=== PATIENT | male | born 1970 | race Two or more races ===

== ENCOUNTER 2019-03-27 20:04 | Inpatient (IN) | payer OTHER ==
[~2019-03-27] VITALS: Ht 172.7 cm; Wt 87.1 kg
--- NOTE | 2019-03-27 20:21 | NUR ---
REPORT RECEIVED FROM SYLVIA MATA. PER REPORT: PT RAFAL REM FROM HOME FOR SUDDEN BODY ACHES AND BILATERAL UPPER EXTREMITY WEAKNESS/PAIN. PER EMS, PIV ESTABLISHED EN ROUTE, PT MEDICATED BY EMS WITH 500ML NS AND 100MCG IVP FENTANYL. PT AAO X 4, NAD, ROOM AIR, DRESSED IN GOWN AND ON FULL MONITOR. MD AT BEDSIDE FOR ASSESSMENT. FMAILY AT BEDSIDE, SIDERAIL X [address], CALL LIGHT WITHIN REACH.
[2019-03-27] MEDS ORDERED: ACETAMINOPHEN 500 MG TABLET ONE (20:28)
[2019-03-27] MEDS ORDERED: KETOROLAC 30 MG/1 ML ONE (20:28)
[2019-03-27] MEDS ORDERED: SODIUM CHLORIDE 0.9% 1,000ML IVBOLUS ONE ×2 (20:30→21:30)
[2019-03-27] MEDS ORDERED: KETOROLAC 30 MG/1 ML IVPush ONE (20:30)
[2019-03-27] MEDS ORDERED: ACETAMINOPHEN 500 MG TABLET PO ONE (20:30)
[2019-03-27] MEDS ORDERED: SODIUM CHLORIDE FLUSH 10ML SYR IVF ONE (20:30)
--- NOTE | 2019-03-27 20:32 | NUR ---
PT MEDICATED PER ORDERS.
--- NOTE | 2019-03-27 20:49 | NUR ---
REPORT TO SYLVIA NULL. CARE TRANSFERRED AT THIS TIME.
[2019-03-27 20:52] LABS: BASOPHILS # (AUTO) 0.02 x10^3/uL (0-0.1); BASOPHILS % (AUTO) 0 % (0-1); EOSINOPHILS # (AUTO) 0.03 x10^3/uL (0-0.4); EOSINOPHILS % (AUTO) 1 % (1-7); LYMPHOCYTES # (AUTO) 0.65 x10^3/uL (1-3.4); LYMPHOCYTES % (AUTO) 11 % (22-44); MD NO; MEAN CORPUSCULAR HEMOGLOBIN 30.8 pg (27.5-34.5); MEAN CORPUSCULAR HGB CONC 34.6 g/dL (33.2-36.2); MEAN CORPUSCULAR VOLUME 88.9 fL (81-97); MEAN PLATELET VOLUME 7.5 fL (7.4-10.4); MONOCYTES # (AUTO) 0.02 x10^3/uL (0.2-0.8); MONOCYTES % (AUTO) 0 % (2-9); NEUTROPHILS # (AUTO) 5.44 x10^3/uL (1.8-6.8); NEUTROPHILS % (AUTO) 88 % (42-75); PLATELET COUNT 272 x10^3/uL (130-400); RED BLOOD COUNT 4.72 x10^6/uL (4.38-5.82); RED CELL DISTRIBUTION WIDTH 12.8 % (9.4-14.8)
[2019-03-27 21:02] LABS: ALBUMIN 3.7 g/dL (3.4-5.0); ANION GAP 9 mmol/L (5-15); CALCIUM 8.3 mg/dL (8.5-10.1); CHLORIDE 108 mmol/L (98-107); CREATININE 1.01 mg/dL (0.7-1.3)
[2019-03-27] MEDS ORDERED: CEFTRIAXONE PMX 1GM/50ML 50 ML ONE (21:19)
[2019-03-27] MEDS ORDERED: CEFTRIAXONE PMX 1GM/50ML 50 ML IVPB ONE (21:30)
[2019-03-27 21:38] LABS: RAPID INFLUENZA A Negative (Negative); RAPID INFLUENZA B Negative (Negative)
[2019-03-27] MEDS ORDERED: VANCOMYCIN PER PHARMACY MC PRN (22:30)
[2019-03-27 22:54] VITALS: BP 114/71
[2019-03-27] MEDS ORDERED: POLYETHYLENE GLYCOL 17 GM PACKET PO PRN (23:00)
[2019-03-27] MEDS ORDERED: PHARMACOKINETIC MONITORING MC PRN (23:00)
[2019-03-27] MEDS ORDERED: BISACODYL 10 MG SUPP PR PRN (23:00)
[2019-03-27] MEDS ORDERED: ONDANSETRON 2MG/ML, 2ML IVPush PRN (23:00)
[2019-03-27] MEDS: ACETAMINOPHEN 325 MG TABLET PO PRN (23:11)
[2019-03-27 23:12] LABS: MICROSCOPIC NOT IND
[2019-03-27 23:15] LABS: CULTURE INDICATED? NO
[2019-03-27] MEDS ORDERED: PLEASE ENTER HEIGHT AND WEIGHT MC SCH (23:30)
[2019-03-27] MEDS ORDERED: OMNIPAQUE 350 MG/ML, 100ML BOTTLE ONE (23:49)
[2019-03-28] MEDS: HEPARIN 5,000 UNITS/ML, 1ML SQ SCH ×3 (00:04→15:48)
[2019-03-28] MEDS: NS + 20MEQ KCL 1,000 ML IV SCH ×3 (00:05→18:21)
[2019-03-28] MEDS: PIPERACILLIN/TAZO/PMX 3.375GM 50 ML IV SCH ×2 (00:05→05:54)
[2019-03-28] MEDS ORDERED: VANCOMYCIN 1,800 MG in SODIUM CHLORIDE 0.9% 250 ML IV SCH (00:30)
[2019-03-28 03:00] VITALS: BP 112/70
[2019-03-28 05:43] LABS: BASOPHILS # (AUTO) 0.01 x10^3/uL (0-0.1); BASOPHILS % (AUTO) 0 % (0-1); EOSINOPHILS # (AUTO) 0.01 x10^3/uL (0-0.4); EOSINOPHILS % (AUTO) 0 % (1-7); LYMPHOCYTES # (AUTO) 0.98 x10^3/uL (1-3.4); LYMPHOCYTES % (AUTO) 6 % (22-44); MD NO; MEAN CORPUSCULAR HEMOGLOBIN 30.7 pg (27.5-34.5); MEAN CORPUSCULAR HGB CONC 34.5 g/dL (33.2-36.2); MEAN CORPUSCULAR VOLUME 89.1 fL (81-97); MEAN PLATELET VOLUME 7.9 fL (7.4-10.4); MONOCYTES # (AUTO) 0.43 x10^3/uL (0.2-0.8); MONOCYTES % (AUTO) 3 % (2-9); NEUTROPHILS # (AUTO) 13.93 x10^3/uL (1.8-6.8); NEUTROPHILS % (AUTO) 91 % (42-75); PLATELET COUNT 245 x10^3/uL (130-400); RED BLOOD COUNT 4.23 x10^6/uL (4.38-5.82); RED CELL DISTRIBUTION WIDTH 13.2 % (9.4-14.8)
[2019-03-28 05:50] LABS: CHLORIDE 113 mmol/L (98-107)
[2019-03-28 05:54] LABS: ANION GAP 8 mmol/L (5-15); CREATININE 0.87 mg/dL (0.7-1.3)
[2019-03-28] MEDS: ACETAMINOPHEN 325 MG TABLET PO PRN ×2 (06:00→20:51)
[2019-03-28] MEDS: CEFTRIAXONE PMX 2GM/50ML 50 ML IV SCH (08:33)
[2019-03-28] MEDS: SENNA/DOCUSATE TABLET PO SCH ×2 (08:35→10:40)
[2019-03-28 08:54] VITALS: BP 114/76
[2019-03-28] MEDS: METRONIDAZOLE PMX 500MG/100ML 100 ML IV SCH ×2 (10:39→18:27)
[2019-03-28] MEDS: morphine SULFATE 10 MG/ML, 1ML IVPush PRN ×2 (11:05→15:49)
[2019-03-28 14:37] VITALS: BP 126/85
[2019-03-28 19:09] VITALS: BP 138/87
[2019-03-29] MEDS: HEPARIN 5,000 UNITS/ML, 1ML SQ SCH ×3 (00:22→17:02)
[2019-03-29 00:25] VITALS: BP 121/81
[2019-03-29] MEDS: METRONIDAZOLE PMX 500MG/100ML 100 ML IV SCH ×3 (02:30→18:45)
[2019-03-29 05:28] LABS: BASOPHILS % (AUTO) 0 % (0-1); EOSINOPHILS # (AUTO) 0.05 x10^3/uL (0-0.4); EOSINOPHILS % (AUTO) 1 % (1-7); LYMPHOCYTES # (AUTO) 0.99 x10^3/uL (1-3.4); LYMPHOCYTES % (AUTO) 11 % (22-44); MD NO; MEAN CORPUSCULAR HEMOGLOBIN 30.9 pg (27.5-34.5); MEAN CORPUSCULAR HGB CONC 34.2 g/dL (33.2-36.2); MEAN CORPUSCULAR VOLUME 90.2 fL (81-97); MEAN PLATELET VOLUME 7.5 fL (7.4-10.4); MONOCYTES # (AUTO) 0.57 x10^3/uL (0.2-0.8); MONOCYTES % (AUTO) 6 % (2-9); NEUTROPHILS # (AUTO) 7.64 x10^3/uL (1.8-6.8); NEUTROPHILS % (AUTO) 83 % (42-75); PLATELET COUNT 205 x10^3/uL (130-400)
[2019-03-29 05:39] LABS: ANION GAP 7 mmol/L (5-15); CALCIUM 8.2 mg/dL (8.5-10.1); CHLORIDE 108 mmol/L (98-107)
[2019-03-29 05:44] LABS: ALANINE AMINOTRANSFERASE 143 U/L (12-78); ALKALINE PHOSPHATASE 82 U/L (45-117); BILIRUBIN,TOTAL 0.6 mg/dL (0.2-1.0); CREATININE 0.75 mg/dL (0.7-1.3); TOTAL PROTEIN 6.6 g/dL (6.4-8.2)
[2019-03-29] MEDS: NS + 20MEQ KCL 1,000 ML IV SCH (08:00)
[2019-03-29 08:13] VITALS: BP 134/90
[2019-03-29] MEDS: SENNA/DOCUSATE TABLET PO SCH (08:55)
[2019-03-29] MEDS: CEFTRIAXONE PMX 2GM/50ML 50 ML IV SCH (08:55)
[2019-03-29 14:06] VITALS: BP 133/89
[2019-03-29] MEDS ORDERED: POTASSIUM CHLORIDE 20 MEQ TAB.ER.PRT PO ONE (16:00)
[2019-03-29] MEDS ORDERED: MAGNESIUM SULFATE PMX 2GM/50ML 50 ML IV ONE (16:00)
[2019-03-29] MEDS ORDERED: POTASSIUM PHOSPHATE 88 MEQ in SODIUM CHLORIDE 0.9% 1,000 ML IV ONE (17:00)
[2019-03-29 19:38] VITALS: BP 125/77
[2019-03-29] MEDS: ACETAMINOPHEN 325 MG TABLET PO PRN (19:57)
[2019-03-30 00:59] VITALS: BP 125/86
[2019-03-30] MEDS: HEPARIN 5,000 UNITS/ML, 1ML SQ SCH ×2 (01:14→08:48)
[2019-03-30] MEDS: METRONIDAZOLE PMX 500MG/100ML 100 ML IV SCH (02:01)
[2019-03-30 05:02] LABS: ANION GAP 8 mmol/L (5-15); CALCIUM 8.3 mg/dL (8.5-10.1); CHLORIDE 111 mmol/L (98-107)
[2019-03-30 05:03] LABS: BASOPHILS # (AUTO) 0.03 x10^3/uL (0-0.1); BASOPHILS % (AUTO) 0 % (0-1); EOSINOPHILS # (AUTO) 0.04 x10^3/uL (0-0.4); EOSINOPHILS % (AUTO) 1 % (1-7); LYMPHOCYTES # (AUTO) 1.35 x10^3/uL (1-3.4); LYMPHOCYTES % (AUTO) 22 % (22-44); MD NO; MEAN CORPUSCULAR HEMOGLOBIN 30.5 pg (27.5-34.5); MEAN CORPUSCULAR HGB CONC 34.1 g/dL (33.2-36.2); MEAN CORPUSCULAR VOLUME 89.5 fL (81-97); MEAN PLATELET VOLUME 7.7 fL (7.4-10.4); MONOCYTES % (AUTO) 10 % (2-9); NEUTROPHILS # (AUTO) 4.19 x10^3/uL (1.8-6.8); NEUTROPHILS % (AUTO) 67 % (42-75); PLATELET COUNT 226 x10^3/uL (130-400); RED BLOOD COUNT 4.56 x10^6/uL (4.38-5.82); RED CELL DISTRIBUTION WIDTH 12.9 % (9.4-14.8)
[2019-03-30 05:05] LABS: ALANINE AMINOTRANSFERASE 121 U/L (12-78); ALKALINE PHOSPHATASE 89 U/L (45-117); BILIRUBIN,TOTAL 0.4 mg/dL (0.2-1.0); CREATININE 0.77 mg/dL (0.7-1.3); TOTAL PROTEIN 7.1 g/dL (6.4-8.2)
[2019-03-30] MEDS: NS + 20MEQ KCL 1,000 ML IV SCH (08:48)
[2019-03-30] MEDS: CEFTRIAXONE PMX 2GM/50ML 50 ML IV SCH (08:49)
[2019-03-30] MEDS: SENNA/DOCUSATE TABLET PO SCH (08:49)
[2019-03-30] MEDS ORDERED: CEFD300C37 PO (10:14)
[2019-03-30] MEDS ORDERED: METR500T PO (10:14)
[2019-03-30] MEDS ORDERED: ACET325T26 PO (10:14)
[2019-03-30 10:18] VITALS: BP 147/96
== END 2019-03-30 12:57 | disposition home or self-care (01) | DRG 872 ==
LOC: ED 21:52 → EDIP 21:53 → 4WST 22:48 → DCLOUNGE 03-30 12:46
PROVIDERS: ADMIT Internal Medicine; ATTEND Internal Medicine
DX: A41.9 Sepsis, unspecified organism (principal); E87.2 Acidosis; K57.32 Diverticulitis of large intestine without perforation or abscess without bleeding; E83.39 Other disorders of phosphorus metabolism; E87.6 Hypokalemia; R65.20 Severe sepsis without septic shock; Z82.49 Family history of ischemic heart disease and other diseases of the circulatory system; Z90.49 Acquired absence of other specified parts of digestive tract; Z83.3 Family history of diabetes mellitus
CPT/HCPCS: 36415; 71045; 74177; 80048; 80053; 81003; 82040; 83605; 83735; 83880; 84100; 85025; 87040; 87076; 87077; 87186; 87400; 93005; 93306; 96365; G0378; J0696; J1644; J1885; J2405; J2543; J3370; J3480; Q9967; J2270; J3475; J7030; J7050

== ENCOUNTER 2020-02-29 09:00 | Inpatient (IN) | payer SELFPAY ==
[~2020-02-29] VITALS: Ht 172.7 cm; Wt 89.0 kg
[~2020-02-29 09:00] MED LIST: ACET325T26 PO; CEFD300C37 PO; METR500T PO
[2020-02-29] MEDS ORDERED: MORPHINE SULFATE 4 MG/ML, 1ML IVPush PRN (09:30)
[2020-02-29] MEDS ORDERED: SODIUM CHLORIDE FLUSH 10ML SYR IVF ONE (09:30)
[2020-02-29] MEDS ORDERED: KETOROLAC 30 MG/1 ML IVPush ONE (09:30)
[2020-02-29] MEDS ORDERED: SODIUM CHLORIDE 0.9% 1,000ML IVBOLUS ONE (09:30)
[2020-02-29] MEDS ORDERED: KETOROLAC 30 MG/1 ML ONE (09:45)
[2020-02-29] MEDS ORDERED: MORPHINE SULFATE 4 MG/ML, 1ML ONE (09:45)
[2020-02-29 09:54] LABS: BASOPHILS % (AUTO) 1 % (0-1); EOSINOPHILS % (AUTO) 1 % (1-7); LYMPHOCYTES % (AUTO) 18 % (22-44); MEAN CORPUSCULAR HEMOGLOBIN 30.8 pg (27.5-34.5); MEAN CORPUSCULAR HGB CONC 34.7 g/dL (33.2-36.2); MEAN PLATELET VOLUME 7.3 fL (7.4-10.4); MONOCYTES % (AUTO) 8 % (2-9); NEUTROPHILS % (AUTO) 73 % (42-75); PLATELET COUNT 334 x10^3/uL (130-400); RED BLOOD COUNT 4.63 x10^6/uL (4.38-5.82); RED CELL DISTRIBUTION WIDTH 12.8 % (9.4-14.8)
--- NOTE | 2020-02-29 09:57 | NUR ---
PT HAS CO LOWER ABDOMINAL PAIN WITH FLANK PAIN. DISCOMFORT WHEN VOIDING. SYMPTOMS STARTED TUESDAY. DENIES CP. UA SENT, LABS, PIV. MEDICATED FOR PAIN. AT BEDSIDE.
[2020-02-29 09:58] LABS: MICROSCOPIC NOT IND
[2020-02-29 10:03] LABS: ALANINE AMINOTRANSFERASE 48 U/L (12-78); ALBUMIN 3.8 g/dL (3.4-5.0); ANION GAP 8 mmol/L (5-15); CALCIUM 9.4 mg/dL (8.5-10.1); CHLORIDE 108 mmol/L (98-107)
[2020-02-29 10:06] LABS: ALKALINE PHOSPHATASE 91 U/L (45-117); BILIRUBIN,TOTAL 0.5 mg/dL (0.2-1.0)
[2020-02-29 10:07] LABS: MD NO
--- NOTE | 2020-02-29 10:15 | NUR ---
PT STATES RELEIF FROM PAIN MEDICATION
--- NOTE | 2020-02-29 10:35 | NUR ---
PT TO CT
[2020-02-29] MEDS ORDERED: OMNIPAQUE 350 MG/ML, 100ML BOTTLE ONE (10:40)
[2020-02-29] MEDS ORDERED: METRONIDAZOLE PMX 500MG/100ML 100 ML IV ONE (11:00)
[2020-02-29] MEDS ORDERED: AMPICILLIN/SULBACTAM 3 GM in SODIUM CHLORIDE 0.9% 100 ML IV ONE (11:00)
[2020-02-29] MEDS ORDERED: METRONIDAZOLE PMX 500MG/100ML 100 ML ONE (11:32)
--- NOTE | 2020-02-29 11:36 | NUR ---
BLOOD CULTURES DRAWN PRIOR ABX ADMIN. POC FOR ADMISSION
[2020-02-29] MEDS ORDERED: KETOROLAC 30 MG/1 ML IV PRN (13:30)
[2020-02-29] MEDS ORDERED: HYDROmorphone 2 MG/ML, 1ML IVPush PRN (13:30)
[2020-02-29] MEDS ORDERED: LACTATED RINGERS 1,000 ML IVBOLUS ONE (13:30)
[2020-02-29] MEDS ORDERED: ONDANSETRON ODT 4 MG PO PRN (13:30)
[2020-02-29] MEDS ORDERED: ONDANSETRON 2MG/ML, 2ML IVPush PRN (13:30)
--- NOTE | 2020-02-29 14:03 | NUR ---
REPORT TO SMITA
[2020-02-29 14:31] VITALS: BP 146/77
[2020-02-29 14:48] VITALS: BP 146/77
[2020-02-29] MEDS: ENOXAPARIN 40 MG/0.4 ML SQ SCH (16:35)
[2020-02-29] MEDS: ACETAMINOPHEN 325 MG TABLET PO PRN (16:36)
[2020-02-29 20:00] VITALS: BP 141/88
[2020-02-29] MEDS: AMPICILLIN/SULBACTAM 3 GM in SODIUM CHLORIDE 0.9% 100 ML IV SCH (21:19)
[2020-02-29] MEDS: METRONIDAZOLE PMX 500MG/100ML 100 ML IV SCH (22:25)
[2020-03-01] MEDS: LACTATED RINGERS 1,000 ML IV SCH ×2 (00:02→11:06)
[2020-03-01] MEDS: ACETAMINOPHEN 325 MG TABLET PO PRN ×3 (00:12→16:52)
[2020-03-01 03:10] VITALS: BP 132/82
[2020-03-01] MEDS: AMPICILLIN/SULBACTAM 3 GM in SODIUM CHLORIDE 0.9% 100 ML IV SCH ×3 (05:03→21:32)
[2020-03-01] MEDS: METRONIDAZOLE PMX 500MG/100ML 100 ML IV SCH ×3 (06:01→22:21)
[2020-03-01 06:21] LABS: BASOPHILS % (AUTO) 0 % (0-1); EOSINOPHILS % (AUTO) 0 % (1-7); LYMPHOCYTES % (AUTO) 16 % (22-44); MEAN CORPUSCULAR HEMOGLOBIN 30.7 pg (27.5-34.5); MEAN PLATELET VOLUME 7.5 fL (7.4-10.4); MONOCYTES % (AUTO) 9 % (2-9); NEUTROPHILS % (AUTO) 75 % (42-75); PLATELET COUNT 319 x10^3/uL (130-400); RED BLOOD COUNT 4.53 x10^6/uL (4.38-5.82); RED CELL DISTRIBUTION WIDTH 13.1 % (9.4-14.8)
[2020-03-01 06:27] LABS: CALCIUM 8.8 mg/dL (8.5-10.1); CHLORIDE 106 mmol/L (98-107)
[2020-03-01 06:31] LABS: ANION GAP 8 mmol/L (5-15); CREATININE 0.69 mg/dL (0.7-1.3)
[2020-03-01 06:37] LABS: MD NO
[2020-03-01 06:55] VITALS: BP 143/99
[2020-03-01] MEDS: SENNA/DOCUSATE TABLET PO SCH (08:15)
[2020-03-01 12:31] LABS: MICROSCOPIC NOT IND
[2020-03-01 14:40] VITALS: BP 150/96
[2020-03-01] MEDS: ENOXAPARIN 40 MG/0.4 ML SQ SCH (16:56)
[2020-03-01 18:55] VITALS: BP 131/94
[2020-03-02 01:28] VITALS: BP 143/98
[2020-03-02] MEDS: LACTATED RINGERS 1,000 ML IV SCH (02:06)
[2020-03-02] MEDS: AMPICILLIN/SULBACTAM 3 GM in SODIUM CHLORIDE 0.9% 100 ML IV SCH (05:07)
[2020-03-02] MEDS: METRONIDAZOLE PMX 500MG/100ML 100 ML IV SCH (05:59)
[2020-03-02 07:33] VITALS: BP 138/105
[2020-03-02 08:20] VITALS: BP 132/90
[2020-03-02] MEDS: SENNA/DOCUSATE TABLET PO SCH (08:22)
[2020-03-02] MEDS ORDERED: AMOXICILLIN/CLAV 875-125MG TABLET PO SCH (09:30)
[2020-03-02 12:39] VITALS: BP 159/106
[2020-03-02 13:20] VITALS: BP 148/92
[2020-03-02] MEDS ORDERED: AMOX1TAB12 PO (14:28)
[2020-03-02] MEDS ORDERED: METR500T PO (14:28)
[2020-03-02] MEDS ORDERED: Senna/Docusate PO (14:28)
[2020-03-02 15:55] VITALS: BP 140/89
[2020-03-02] MEDS ORDERED: metroNIDAZOLE 500 MG TABLET PO SCH (16:00)
== END 2020-03-02 16:33 | disposition home or self-care (01) | DRG 872 ==
LOC: ED 11:47 → EDIP 13:01 → 4NE 14:24 → DCLOUNGE 03-02 16:25
PROVIDERS: ADMIT Family Medicine; ATTEND Family Medicine
DX: A41.9 Sepsis, unspecified organism (principal); K57.20 Diverticulitis of large intestine with perforation and abscess without bleeding; I10 Essential (primary) hypertension; K59.09 Other constipation; R30.0 Dysuria
CPT/HCPCS: 36415; 74177; 80048; 80053; 81003; 83605; 83735; 85025; 87040; 96361; 96365; 96375; 96376; 99291; G0378; J0295; J1170; J1650; J1885; Q9967; J2270; J7030; J7120